=== PATIENT | male | born 1975 | race Caucasian/White ===

== ENCOUNTER 2016-06-08 17:47 | Emergency (ER) | payer BC, OTHER ==
[2016-06-08] MEDS ORDERED: IOPAMIDOL 300 (61%) 150 ML VIAL IV ONE (17:48)
[2016-06-08] MEDS ORDERED: SODIUM CHLORIDE 0.9% 1,000 ML ONE (19:03)
[2016-06-08 19:14] LABS: ABSOLUTE NEUTROPHIL COUNT 4.9 K/mm3 (1.8-7.7); BASO % 0.5 % (0.2-1.0); EOS # 0.1 (0.0-0.5); EOS % 0.6 % (0.9-2.9); HEMOGLOBIN 16.3 gm/l (14.0-18.0); IMM NEUT% 0.3 % (0-1); LYMPH # 2.5 (1.0-4.8); LYMPH % 31.2 % (15-45); MEAN CELL VOLUME 88.6 fl (80.0-94.0); MEAN CORPUSCULAR HEMOGLOBIN 31.4 pg (27.0-31.0); MEAN CORPUSCULAR HGB CONC 35.4 g/dl (33.0-37.0); MEAN PLATELET VOLUME 9.4 fl (7.4-10.4); MONO # 0.5 (0.0-0.8); MONO % 5.7 % (4-12); NEUT % 61.7 % (43-75); PLATELET COUNT 227 K/mm3 (130-400); RED CELL DISTRIBUTION WIDTH 11.8 % (11.5-14.5)
[2016-06-08 19:28] LABS: ALB/GLOB RATIO 1.7 (>1.0); ALBUMIN 4.5 gm/dL (3.5-5.7); CALCIUM 9.5 mg/dL (8.6-10.3)
--- NOTE | 2016-06-08 19:48 | CT ---
ABD/PELVIS W/ CON COMPARISON: None. HISTORY: Left lower quadrant abdominal pain. Technique: Intravenous injection 125 mL Isovue 300. Using a [employer] Aquilion [address] scanner, images were obtained from the diaphragm to the floor the pelvis. An automated dose reduction technique was used to minimize patient radiation dose. Dose information: CTDIvol (mGy): 20.00 DLP(mGycm): 1211.30 FINDINGS: Lung bases: Normal. Inferior mediastinum and heart: Normal. Liver: Normal. Gallbladder:Normal. Bile ducts: Normal. Pancreas: Normal. Spleen: Normal. Adrenal glands: Normal. Kidneys: Normal. Ureters: Normal Urinary bladder: Normal. Prostate gland and seminal vesicles: Normal. Blood vessels: Normal Lymph nodes: Normal Stomach: Normal Duodenum: Normal Small intestine: Normal Appendix: Normal Colon: Normal Abdominal wall and supporting musculature: 5.4 cm long by 2 cm wide left inguinal hernia containing fat. Bones: Degenerative changes in spine. IMPRESSION: 1. Normal left lower quadrant of the abdomen, except for a left inguinal hernia containing fat. No diverticulitis. 2. Mild degenerative changes in the spine. Report was sent to the emergency department [employer] medical record system 06/08/2016 at 19:49
== END 2016-06-08 20:35 | disposition home or self-care (01) ==
LOC: ED 17:47
DX: K40.90 Unilateral inguinal hernia, without obstruction or gangrene, not specified as recurrent (principal); R10.32 Left lower quadrant pain